=== PATIENT | female | born 1990 | race Caucasian/White ===

== ENCOUNTER → 2017-01-13 | Outpatient (CLI) | payer OTHER ==
[~2017-01-13] MED LIST: ALBU0.08 NEB; AMBI5TAB PO; AZEL1SPR2 EACH NARE; CYCL5TAB PO; MONT10TA2 PO; RANI150T PO; REGL10TA5 PO; THRIVE VITAMINS; VENTAER INH; VITA2000 PO
[2017-01-13 11:18] LABS: HEMATOCRIT 37.4 % (35.0-46.0); MEAN CORPUSCULAR HEMOGLOBIN 28.2 PG (27.0-34.0); PLATELET COUNT 334 TH/MM3 (150-450); RED CELL DISTRIBUTION WIDTH 13.8 % (11.6-17.2); REVIEW FLAG FINAL; WHITE BLOOD COUNT 8.3 TH/MM3 (4.0-11.0)
== END ==
LOC: CLAB 10:48
PROVIDERS: ATTEND Family Medicine
DX: R53.83 Other fatigue (principal); E55.9 Vitamin D deficiency, unspecified; D72.829 Elevated white blood cell count, unspecified
CPT/HCPCS: 36415; 82306; 84443; 85027

== ENCOUNTER → 2017-02-20 | Outpatient (CLI) | payer OTHER ==
--- NOTE | 2017-02-25 09:03 | RSPPFT ---
DATE OF PROCEDURE: 02/20/17 COMMENTS: Spirometry with normal flow rates and ratios. There is a non-significant response to acutely inhaled bronchodilator. IMPRESSION: 1. Essentially normal spirometry.
== END ==
LOC: HRSP 13:08
PROVIDERS: ATTEND Family Medicine
DX: J45.20 Mild intermittent asthma, uncomplicated (principal)
CPT/HCPCS: 94060